=== PATIENT | female | born 1945 | race Caucasian/White ===

== ENCOUNTER 2019-12-15 07:34 | Observation (INO) ==
[2019-12-15] MEDS ORDERED: Aspirin 325 MG TABLET PO ONE (07:52)
[2019-12-15 08:05] LABS: Basophils # 0.1 K/mcL (0.0-0.2); Basophils % 0.9 %; Eosinophils # 0.3 K/mcL (0.0-0.6); Eosinophils % 3.4 %; Hematocrit 43.5 % (35.3-44.9); Hemoglobin 14.3 g/dL (11.5-15.4); Immature Granulocytes % 0.3 % (0-4); Lymphocytes # 2.7 K/mcL (0.6-4.6); Lymphocytes % 36.1 %; Mean Corpuscular HGB Conc 32.9 g/dL (31.6-35.5); Mean Corpuscular Hemoglobin 28.8 pg (28.0-33.3); Mean Corpuscular Volume 87.5 fL (83.0-100.0); Mean Platelet Volume 9.6 fL (9.4-12.4); Monocytes # 0.6 K/mcL (0.0-1.3); Monocytes % 8.6 %; Neutrophils # 3.8 K/mcL (1.6-8.9); Platelet Count 294 K/mcL (140-400); Red Blood Count 4.97 M/mcL (3.82-4.97); Red Cell Distribution Width 13.1 % (11.5-14.5); Segmented Neutrophils % 50.7 %; White Blood Count 7.4 K/mcL (4.3-11.1)
[2019-12-15 08:09] LABS: INR 0.9; Prothrombin Time 10.2 Seconds (9.4-12.1)
[2019-12-15 08:11] LABS: Activated Partial Thrombo Time 34.7 Seconds (26.0-36.0)
[2019-12-15] MEDS ORDERED: Aspirin 81 MG TAB.CHEW ONE (08:20)
[2019-12-15] MEDS: DilTIAZem 50 MG/50 ML IV.SOLN IVC SCH ×2 (08:23→19:06)
[2019-12-15 08:27] LABS: Alanine Aminotransferase 24 Units/L (7-52); Albumin 4.6 g/dL (3.5-5.7); Albumin/Globulin Ratio 1.5 (1.1-2.2); Alkaline Phosphatase 85 Units/L (34-104); Aspartate Amino Transferase 20 Units/L (13-39); BUN/Creatinine Ratio 27 (6-26); Bilirubin,Direct 0.1 mg/dL (0.0-0.2); Bilirubin,Indirect 0.3 mg/dL (0.0-1.0); Bilirubin,Total 0.4 mg/dL (0.3-1.0); Blood Urea Nitrogen 16 mg/dL (8-23); Calcium 9.3 mg/dL (8.6-10.3); Carbon Dioxide 21 mEq/L (23-29); Chloride 111 mEq/L (98-107); Glucose 135 mg/dL (70-105); Magnesium 2.2 mg/dL (1.6-2.6); Osmolality,Calculated 303 (280-300); Potassium 3.7 mEq/L (3.5-5.1); Sodium 145 mEq/L (136-145); Total Protein 7.6 g/dL (6.4-8.9); Troponin I < 0.03 ng/mL (< 0.04); eGFR For African Americans > 60 (> 60); eGFR For Non-African Americans > 60 (> 60)
[2019-12-15] MEDS ORDERED: Aspirin 81 MG TAB.CHEW PO STA (08:29)
[2019-12-15 08:40] LABS: Thyroid Stimulating Hormone 4.182 mcIU/mL (0.340-5.600)
[2019-12-15] MEDS ORDERED: Metoprolol XL (24 HR) Succ 50 MG TAB.ER.24H PO SCH (09:30)
[2019-12-15] MEDS ORDERED: Acetaminophen 325 MG TABLET PO PRN (09:44)
[2019-12-15] MEDS ORDERED: *HR* Promethazine 25 MG/ML VIAL IVP PRN (09:44)
[2019-12-15] MEDS ORDERED: Perflutren Lipid Microsphere 1.3 ML in 0.9 % Sodium Chloride 8.7 ML IVP PRN (10:40)
[2019-12-16 03:21] LABS: Hematocrit 37.4 % (35.3-44.9); Hemoglobin 12.2 g/dL (11.5-15.4); Mean Corpuscular HGB Conc 32.6 g/dL (31.6-35.5); Mean Corpuscular Hemoglobin 29.1 pg (28.0-33.3); Mean Corpuscular Volume 89.3 fL (83.0-100.0); Mean Platelet Volume 9.7 fL (9.4-12.4); Platelet Count 258 K/mcL (140-400); Red Blood Count 4.19 M/mcL (3.82-4.97); Red Cell Distribution Width 13.3 % (11.5-14.5); White Blood Count 8.8 K/mcL (4.3-11.1)
[2019-12-16 03:38] LABS: BUN/Creatinine Ratio 38 (6-26); Blood Urea Nitrogen 22 mg/dL (8-23); Carbon Dioxide 21 mEq/L (23-29); Chloride 109 mEq/L (98-107); Glucose 98 mg/dL (70-105); Osmolality,Calculated 293 (280-300); Potassium 3.8 mEq/L (3.5-5.1); Sodium 140 mEq/L (136-145); eGFR For African Americans > 60 (> 60); eGFR For Non-African Americans > 60 (> 60)
[2019-12-16] MEDS ORDERED: Perflutren Lipid Microsphere 1.3 ML in 0.9 % Sodium Chloride 8.7 ML IVP PRN (08:31)
[2019-12-16] MEDS: DilTIAZem 50 MG/50 ML IV.SOLN IVC SCH (08:31)
[2019-12-16] MEDS ORDERED: NON-FORMULARY MEDICATION 1 EACH EACH (Ezetimibe [Zetia] 10 MG) PO SCH (09:00)
[2019-12-16] MEDS ORDERED: Aspirin 81 MG TAB.CHEW PO SCH ×2 (09:00→09:15)
[2019-12-16] MEDS ORDERED: Ascorbic Acid 500 MG TABLET PO SCH (09:00)
[2019-12-16] MEDS ORDERED: Aspirin 81 MG TAB.CHEW ONE (09:11)
[2019-12-16] MEDS ORDERED: Metoprolol XL (24 HR) Succ 50 MG TAB.ER.24H PO SCH (12:00)
[2019-12-16 15:00] VITALS: BP 131/72
== END 2019-12-16 17:14 | disposition home or self-care (01) ==
LOC: EMEROOARM 07:34 → 3BNU 07:34 → SUATTDRO 09:48 → 3BNU 10:10
PROVIDERS: ADMIT Internal Medicine; ATTEND Internal Medicine